=== PATIENT | male | born 2000 | race Caucasian/White ===

== ENCOUNTER 2018-09-23 12:50 | Emergency (ER) | payer SELFPAY, OTHER ==
[2018-09-23] MEDS: IBUPROFEN 600 MG TAB PO (14:07)
== END 2018-09-23 15:37 | disposition home or self-care (01) ==
LOC: FTE 12:50
DX: S00.01XA Abrasion of scalp, initial encounter (principal); S00.31XA Abrasion of nose, initial encounter; S80.211A Abrasion, right knee, initial encounter; S80.212A Abrasion, left knee, initial encounter; M62.830 Muscle spasm of back; R40.2412 Glasgow coma scale score 13-15, at arrival to emergency department; V49.40XA Driver injured in collision with unspecified motor vehicles in traffic accident, initial encounter
CPT/HCPCS: 73562; 99283-25